=== PATIENT | male | born 1965 | race Caucasian/White ===

== ENCOUNTER 2016-12-22 15:20 | Emergency (ER) | payer OTHER ==
[2016-12-22 15:43] LABS: Hematocrit 42.9 % (42.0-52.0); Hemoglobin 14.8 gm/dL (13.5-18.0); Mean Cell Volume 96.6 fl (78-100); Mean Corpuscular Hemoglobin 33.3 pg (27-31); Mean Corpuscular Hgb Conc 34.5 g/dl (32-36); Mean Platelet Volume 9.5 fl (6.0-9.5); Neutrophil # 6.5 K/mm3 (1.3-6.0); Neutrophil % 58.2 % (42-75.0); Platelet Count 238 K/mm3 (150-450); Red Blood Count 4.44 M/mm3 (4.7-6.0); Red Cell Distribution Width 12.5 % (11.5-14.0); White Blood Count 11.2 K/mm3 (4.0-10.5)
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
[2016-12-22 15:56] LABS: Albumin * 4.3 gm/dl (3.4-5.0); Anion Gap 12.4 mmol/L (6.8-13.8); BUN/Creatinine Ratio 12.4 (9.0-21.6); Ca. Corrected For Albumin 8.7 mg/dL (8.4-10.2); Calcium * 9.3 mg/dL (7.9-10.9); Carbon Dioxide 28.7 mmol/L (24-32.6); Potassium 4.1 mmol/L (3.4-4.6); Total Protein 7.6 gm/dL (6.2-8.2)
[2016-12-22] MEDS ORDERED: MORPHINE SULFATE 4 MG/ML SYRG IV ONE (16:01)
[2016-12-22] MEDS ORDERED: CYCLOBENZAPRINE HCL 10 MG TABLET PO ONE (16:01)
[2016-12-22] MEDS ORDERED: MORPHINE SULFATE 4 MG/ML SYRG ONE (16:07)
[2016-12-22] MEDS ORDERED: CYCLOBENZAPRINE HCL 10 MG TABLET ONE (16:07)
[2016-12-22 16:31] VITALS: BP 131/81
--- OUTSIDE RECORDS SUMMARY | 2016-12-22 16:35 | XMS REPORT | Continuity of Care Document ---
:1965 Demographics Phone Unavailable Preferred Language Unknown Marital Status Unknown Latter Day Affiliation Unknown Race Unknown Ethnic Group Unknown Author Organization [facility] Address Unavailable [address] [place] [address] Care Team Providers Name Role Phone Unavailable Primary Care Provider Unavailable Source Comments This disclosure is being made pursuant to the Tomo Clases program and maynot contain all information available regarding this patient.[facility] Active Allergies and Adverse Reactions Not on File Current Medications Be aware that medications may not be up to date as of this document. Alwaysverify current medications with the patient. Not on file Active Problems Not on file Social History Tobacco Use Types Packs/Day Years Used Date Never Assessed Plan of Care Health Maintenance Due Date Last Done Comments Retired-Pertussis Vaccine Adult 1985 Retired-Tetanus Vaccine Adult 1984 Retired-INFLUENZA VACCINE 03/28/2015 Results from Last 3 Months Not on file
--- OUTSIDE RECORDS SUMMARY | 2016-12-22 16:35 | XMS REPORT | Continuity of Care Document ---
:1965 Author Organization [facility] ([facility]) Address [place] [address] Phone [phone] Care Team Providers Name Role Phone David Mccoy Primary Care Provider [phone] Source Comments This disclosure is being made pursuant to the Care Everywhere program, applicable federal and state laws, and may not contain all informaitonavailable regarding this patient.[facility] ([facility]) Active Allergies and Adverse Reactions No Known Allergies Current Medications Prescription Sig. Disp. Refills Start Date End Date Status aspirin 81 mg EC Take 1 Tab by mouth 30 Tab 11 01/09/2013 Active tablet daily. Indications: MYOCARDIAL INFARCTION PREVENTION atorvastatin 20 mg Take 1 Tab by mouth 30 Tab 11 01/09/2013 Active tablet daily. Indications: MYOCARDIAL INFARCTION PREVENTION clopidogrel 75 mg Take 1 Tab by mouth 30 Tab 11 01/09/2013 Active tablet daily. Indications: ACUTE ST ELEVATION MYOCARDIAL INFARCTION, MYOCARDIAL INFARCTION PREVENTION folic acid 1 mg tablet Take 1 Tab by mouth 30 Tab 1 01/09/2013 Active daily. Indications: FOLATE DEFICIENCY lisinopril 5 mg tablet Take 1 Tab by mouth 30 Tab 11 01/09/2013 Active daily. Indications: CHRONIC HEART FAILURE pantoprazole 40 mg EC Take 1 Tab by mouth 30 Tab 11 01/09/2013 Active tablet daily. Indications: PREVENTION OF NSAID-INDUCED GASTRIC ULCER nitroglycerin 0.[address] 1 Tab under the 25 Tab 0 01/09/2013 Active SL tablet tongue every 5 minutes as needed for Chest pain. Indications: ANGINA thiamine (VITAMIN B-1) Take 2 Tabs by mouth 60 Tab 1 01/09/2013 Active 50 mg tablet daily. Indications: THIAMINE DEFICIENCY multivitamin tablet Take 1 Tab by mouth 30 Tab 1 01/09/2013 Active daily. Indications: VITAMIN DEFICIENCY PREVENTION metoPROLol tartrate 25 Take 0.5 Tabs by 90 Tab 11 05/31/2013 Active mg tablet mouth 2 times daily. Indications: HYPERTENSION, MYOCARDIAL REINFARCTION PREVENTION Active Problems Problem Noted Date Marijuana smoker 03/02/2013 Hyperlipidemia 03/02/2013 Systolic heart failure 01/08/2013 LV (left ventricular) mural thrombus 01/08/2013 ST elevation myocardial infarction (STEMI) 01/06/2013 Essential hypertension 01/06/2013 Daily alcohol use, at risk of withdrawal 01/06/2013 Tobacco use disorder 01/06/2013 CAD (coronary artery disease) 01/06/2013 Overview: S/P STEMI 01/06/13 with occluded LAD, status post drug eluting stent to mid LAD. Minimal disease in other coronary arteries. history of IV methamphetamine use until 199301/06/2013 Social History Tobacco Use Types Packs/Day Years Used Date Current Every Day Smoker 1 Smokeless Tobacco: Never Used Tobacco Cessation:Ready to Quit: Yes; Counseling Given: Yes Comments: Last Filed Vital Signs Vital Sign Reading Time Taken Blood Pressure 140/89 05/31/2013 10:07 AM [facility] Pulse 59 05/31/2013 10:07 AM [facility] Temperature 36.8 C (98.2 F) 01/09/2013 8:32 AM CDT Respiratory Rate 18 01/09/2013 8:32 AM CDT Height 1.829 m (6' 0.01") 03/01/2013 8:00 AM CDT Weight 96.5 kg (212 lb 11.9 oz) 05/31/2013 10:07 AM [facility]ER Body Mass Index 28.85 05/31/2013 10:07 AM [facility] [employer]ER Oxygen Saturation 99% 05/31/2013 10:07 AM S[facility]ER Plan of Care Health Maintenance Due Date Last Done Comments Hepatitis B Vaccine (1 of 3 - Primary 1966 Series) Tdap Vaccine 1977 MMR Vaccine 1984 Td Vaccine 1984 Pneumococcal Vaccine (1 of 1 - PPSV23) 1985 Influenza Vaccine: Seasonal (#1) 02/26/2016 Colonoscopy 03/05/2016 Prostate Cancer Screening 2016 Lipid Disorder Screening 02/24/2018 02/24/2013, 01/07/2013 Results from Last 3 Months Not on file
== END 2016-12-22 16:53 | disposition home or self-care (01) ==
LOC: ER 15:20
PROC: 2W3FX1Z Immobilization of Left Hand using Splint (ICD-10-PCS; principal; 2016-12-22)
DX: S62.327A Displaced fracture of shaft of fifth metacarpal bone, left hand, initial encounter for closed fracture (principal); S70.02XA Contusion of left hip, initial encounter; V29.88XA Motorcycle rider (driver) (passenger) injured in other specified transport accidents, initial encounter; Y92.411 Interstate highway as the place of occurrence of the external cause